=== PATIENT | female | born 1985 | race Asian ===

== ENCOUNTER 2021-07-27 05:00 | Inpatient (IN) | payer OTHER ==
[~2021-07-27] VITALS: Ht 154.9 cm; Wt 95.3 kg
[2021-07-27] MEDS ORDERED: LIDOCAINE HCL 1% 20ML VIAL (Pyxis) INJ INFIL ONE (06:30)
[2021-07-27] MEDS ORDERED: DEXT 5%/LR + PITOCIN 20UNITS/L 1,000 ML IV ONE (06:30)
[2021-07-27] MEDS ORDERED: DEXT 5%/LR + PITOCIN 20UNITS/L 1,000 ML IV SCH (06:45)
[2021-07-27] MEDS ORDERED: RHO(D) IMMUNE GLOBULIN 300 MCG/SYR IM PRN (06:45)
[2021-07-27] MEDS ORDERED: IBUPROFEN 400MG TABLET PO PRN (06:45)
[2021-07-27] MEDS ORDERED: BENZOCAINE/LANOLIN/ALOE VERA SPRAY TOP PRN (06:45)
[2021-07-27] MEDS ORDERED: OXYCODONE HCL/ACETAMINOPHEN 5/325MG TABLET PO PRN (06:45)
[2021-07-27] MEDS ORDERED: NALOXONE HCL 0.4 MG/ML 1ML VIAL IM PRN (07:00)
[2021-07-27] MEDS ORDERED: HYDRALAZINE 20MG/ML VIAL IV PRN (07:30)
[2021-07-27] MEDS ORDERED: LABETALOL HCL 5MG/ML VIAL 20ML IV PRN ×3 (07:30)
[2021-07-27] MEDS ORDERED: NALOXONE HCL 0.4MG/ML VIAL IV PRN (07:45)
[2021-07-27 07:46] LABS: BASOPHILS % 0.1 % (0.0-2.0); EOSINOPHILS % 0.5 % (0.0-5.0); HEMATOCRIT. 38.1 % (36.0-48.0); HEMOGLOBIN. 12.4 g/dL (12.0-16.0); LYMPHOCYTES % 13.8 % (20.0-50.0); MEAN CORPUSCULAR HEMOGLOBIN 29.1 pg (28.0-32.0); MEAN CORPUSCULAR VOLUME 89.2 fL (81.0-99.0); MEAN PLATELET VOLUME 9.5 fl (7.4-10.4); MONOCYTES % 4.8 % (2.0-8.0); NEUTROPHILS % 80.8 % (40.0-76.0); PLATELET 260 x1000/uL (130-400); RED BLOOD CELL COUNT 4.28 mill/uL (4.2-5.4)
[2021-07-27 07:52] LABS: CHLORIDE 109 mEq/L (98-107)
[2021-07-27 08:05] VITALS: BP 141/98
[2021-07-27 08:46] LABS: HEPATITIS B SURFACE ANTIGEN NEGATIVE
[2021-07-27] MEDS: PRENATAL VIT/FE FUMARATE/FA TABLET PO SCH (08:55)
[2021-07-27] MEDS: IBUPROFEN 800MG TABLET PO PRN ×3 (08:55→21:00)
[2021-07-27 09:25] LABS: D-DIMER 4.01 mg/L FEU (<0.50); INR 0.9; PARTIAL THROMBOPLASTIN TIME 25.4 sec (23.4-31.0)
[2021-07-27 15:40] VITALS: BP 127/78
[2021-07-27 20:00] VITALS: BP 135/86
[2021-07-28 04:30] VITALS: BP 116/59
[2021-07-28 08:30] VITALS: BP 130/93
[2021-07-28] MEDS ORDERED: PRAMOXINE HCL 1% FOAM PR SCH (09:00)
[2021-07-28] MEDS: IBUPROFEN 800MG TABLET PO PRN ×2 (09:03→15:30)
[2021-07-28] MEDS: PRENATAL VIT/FE FUMARATE/FA TABLET PO SCH (09:03)
[2021-07-28] MEDS: FERROUS SULFATE 325MG TABLET PO SCH ×2 (09:03→15:29)
[2021-07-28 11:40] LABS: EOSINOPHILS % 0.7 % (0.0-5.0); HEMATOCRIT. 30.9 % (36.0-48.0); HEMOGLOBIN. 10.1 g/dL (12.0-16.0); LYMPHOCYTES % 22.1 % (20.0-50.0); MEAN CORPUSCULAR HEMOGLOBIN 29.1 pg (28.0-32.0); MEAN CORPUSCULAR VOLUME 88.6 fL (81.0-99.0); MEAN PLATELET VOLUME 9.2 fl (7.4-10.4); MONOCYTES % 7.5 % (2.0-8.0); NEUTROPHILS % 69.7 % (40.0-76.0); PLATELET 210 x1000/uL (130-400); RED BLOOD CELL COUNT 3.49 mill/uL (4.2-5.4); RED CELL DISTRIBUTION WIDTH 13.9 % (11.6-14.6)
== END 2021-07-28 17:40 | disposition home or self-care (01) | DRG 776 ==
LOC: OBSVTOIN 05:00 → 8 EST LDRP 05:00 → 8EST 07:35
PROVIDERS: ADMIT Obstetrics & Gynecology; ATTEND Obstetrics & Gynecology
DX: Z39.0 Encounter for care and examination of mother immediately after delivery (principal); O87.2 Hemorrhoids in the puerperium; Z82.49 Family history of ischemic heart disease and other diseases of the circulatory system; Z20.822 Contact with and (suspected) exposure to COVID-19
CPT/HCPCS: 36415; 80053; 84550; 85025; 85379; 85384; 86592; 86703; 86762; 86850; 86900; 87340; 87426; 88307; 99281; J2590; J3490